=== PATIENT | male | born 1975 | race African-American/Black ===

== ENCOUNTER 2016-07-24 12:48 | Inpatient (IN) | payer OTHER ==
[2016-07-24 14:20] VITALS: BMI 21.1
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
[2016-07-24] MEDS ORDERED: P-EPHED 60MG/TRIPROLIDI 2.5MG TABLET PO PRN (15:47)
[2016-07-24] MEDS ORDERED: guaiFENesin/D-METHORPHAN HB 10 ML UNIT-DOSE CUPS PO PRN (15:47)
[2016-07-24] MEDS ORDERED: hydrOXYzine PAMOATE 50 MG CAPSULE (FP) PO PRN (15:47)
[2016-07-24] MEDS ORDERED: MENTHOL/PHENOL 1 EACH UD MM PRN (15:47)
[2016-07-24] MEDS ORDERED: MAGNESIUM CITRATE 300 ML BOTTLE PO PRN (15:47)
[2016-07-24] MEDS ORDERED: LOPERAMIDE HCL 2 MG CAPSULE PO PRN (15:47)
[2016-07-24] MEDS ORDERED: MAGNESIUM HYDROX 2400MG/30ML ORAL SUSPENSION 30 ML CUP PO PRN (15:47)
[2016-07-24] MEDS: NICOTINE 14 MG/24 HOURS TOPICAL PATCH TD SCH (20:09)
[2016-07-24] MEDS: THIAMINE HCL 100 MG TABLET (FP) PO SCH (22:34)
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
[2016-07-25] MEDS: CALCIUM 500MG/VIT-D 200 UNITS COMBO TABLET (FP) PO SCH (09:32)
[2016-07-25] MEDS: PRENATAL VITAMINS W/ FOLIC ACID TABLET (FP) PO SCH (09:32)
[2016-07-25] MEDS: HYDROCHLOROTHIAZIDE 25 MG TABLET (FP) PO SCH (09:32)
[2016-07-25] MEDS: LISINOPRIL 20 MG TABLET (FP) PO SCH (09:32)
[2016-07-25] MEDS: amLODIPine BESYLATE 5 MG TABLET (FP) PO SCH (09:32)
[2016-07-25] MEDS: NICOTINE 14 MG/24 HOURS TOPICAL PATCH TD SCH (09:33)
[2016-07-25] MEDS: NICOTINE POLACRILEX 2 MG GUM BC PRN (09:34)
--- NOTE | 2016-07-25 10:02 | EKG ---
Test Reason : Blood Pressure : / mmHG Vent. Rate : 063 BPM Atrial Rate : 063 BPM P-R Int : 000 ms QRS Dur : 082 ms QT Int : 392 ms P-R-T Axes : 000 069 057 degrees QTc Int : 401 ms NORMAL SINUS RHYTHM ANTEROSEPTAL INFARCT , AGE UNDETERMINED ABNORMAL ECG NO PREVIOUS ECGS AVAILABLE POOR DATA QUALITY, INTERPRETATION MAY BE ADVERSELY AFFECTED Confirmed by SHANNON MURRY MD ([id number]) on 07/25/2016 10:01:39 AM Referred By: Confirmed By:SHANNON MURRY MD
[2016-07-25 10:07] LABS: MCH 31.6 pg (25.7-33.7); MCHC 33.9 g/dl (32.0-35.9); MEAN CELL VOLUME 93.2 fl (80-96); MEAN PLT VOLUME 7.7 fl (7.5-11.1); PLATELET COUNT 251 K/MM3 (134-434); RDW 13.6 % (11.9-15.9); WHITE BLOOD COUNT 6.5 K/mm3 (4.0-10.0)
[2016-07-25 10:22] LABS: ALBUMIN 4.1 g/dl (3.4-5.0); BILIRUBIN,TOTAL 0.5 mg/dL (0.2-1.0); CALCIUM 9.2 mg/dL (8.5-10.1); COCKROFT - GAULT 78.2; CREATININE 1.5 mg/dL (0.7-1.3); TOT PROT 7.1 g/dl (6.4-8.2)
--- NOTE | 2016-07-25 11:37 | PN ---
[facility] Progress Note Note: seasonal allergy will give claritin 10 mgs po joseph,dry eye to give artificial tear drop 1 gtt both eye bid
[2016-07-25] MEDS: LORATADINE 10 MG TABLET PO SCH (12:04)
[2016-07-25] MEDS: ARTIFICIAL TEARS (POLYVINYL ALCOHOL 1.4%) OPTH DROPS OU SCH ×2 (12:04→21:31)
[2016-07-25] MEDS ORDERED: PT OWN MED DRAWER 7, Y5N ONE ×2 (12:06→21:32)
[2016-07-25 18:00] LABS: URINE APPEARANCE CLEAR; URINE BILIRUBIN NEGATIVE (NEGATIVE); URINE BLOOD NEGATIVE (NEGATIVE); URINE COLOR LTYELLOW; URINE GLUCOSE (UA) NEGATIVE (NEGATIVE); URINE KETONE NEGATIVE (NEGATIVE); URINE LEUK ESTERASE NEGATIVE (NEGATIVE); URINE NITRITE NEGATIVE (NEGATIVE); URINE PROTEIN NEGATIVE (NEGATIVE); URINE UROBILINOGEN NEGATIVE E.U./dl (0.2-1.0)
[2016-07-25] MEDS: THIAMINE HCL 100 MG TABLET (FP) PO SCH (21:30)
[2016-07-25] MEDS: diphenhydrAMINE HCL 50 MG CAPSULE PO PRN (21:31)
[2016-07-26] MEDS: NICOTINE 14 MG/24 HOURS TOPICAL PATCH TD SCH (09:32)
[2016-07-26] MEDS: LORATADINE 10 MG TABLET PO SCH (09:32)
[2016-07-26] MEDS: LISINOPRIL 20 MG TABLET (FP) PO SCH (09:32)
[2016-07-26] MEDS: HYDROCHLOROTHIAZIDE 25 MG TABLET (FP) PO SCH (09:32)
[2016-07-26] MEDS: CALCIUM 500MG/VIT-D 200 UNITS COMBO TABLET (FP) PO SCH (09:32)
[2016-07-26] MEDS: amLODIPine BESYLATE 5 MG TABLET (FP) PO SCH (09:32)
[2016-07-26] MEDS: PRENATAL VITAMINS W/ FOLIC ACID TABLET (FP) PO SCH (09:33)
[2016-07-26] MEDS ORDERED: PT OWN MED DRAWER 7, Y5N ONE ×2 (09:34→18:59)
[2016-07-26] MEDS: ARTIFICIAL TEARS (POLYVINYL ALCOHOL 1.4%) OPTH DROPS OU SCH ×2 (09:35→21:41)
[2016-07-26] MEDS: NICOTINE POLACRILEX 2 MG GUM BC PRN (09:35)
[2016-07-26] MEDS: MAG HYDROX/AL HYDROX/SIMETH 30 ML UNIT-DOSE CUP PO PRN (12:39)
[2016-07-26] MEDS: THIAMINE HCL 100 MG TABLET (FP) PO SCH (21:40)
[2016-07-26] MEDS: diphenhydrAMINE HCL 50 MG CAPSULE PO PRN (21:40)
[2016-07-27] MEDS ORDERED: PT OWN MED DRAWER 7, Y5N ONE ×2 (09:39→19:34)
[2016-07-27] MEDS: HYDROCHLOROTHIAZIDE 25 MG TABLET (FP) PO SCH (09:40)
[2016-07-27] MEDS: ARTIFICIAL TEARS (POLYVINYL ALCOHOL 1.4%) OPTH DROPS OU SCH ×2 (09:40→21:19)
[2016-07-27] MEDS: LORATADINE 10 MG TABLET PO SCH (09:40)
[2016-07-27] MEDS: LISINOPRIL 20 MG TABLET (FP) PO SCH (09:40)
[2016-07-27] MEDS: CALCIUM 500MG/VIT-D 200 UNITS COMBO TABLET (FP) PO SCH (09:40)
[2016-07-27] MEDS: PRENATAL VITAMINS W/ FOLIC ACID TABLET (FP) PO SCH (09:40)
[2016-07-27] MEDS: NICOTINE 14 MG/24 HOURS TOPICAL PATCH TD SCH (09:40)
[2016-07-27] MEDS: amLODIPine BESYLATE 5 MG TABLET (FP) PO SCH (09:40)
[2016-07-27] MEDS: NICOTINE POLACRILEX 2 MG GUM BC PRN (09:41)
--- NOTE | 2016-07-27 14:30 | EKG ---
Test Reason : Blood Pressure : / mmHG Vent. Rate : 075 BPM Atrial Rate : 075 BPM P-R Int : 188 ms QRS Dur : 086 ms QT Int : 374 ms P-R-T Axes : 067 071 061 degrees QTc Int : 417 ms NORMAL SINUS RHYTHM SEPTAL INFARCT (CITED ON OR BEFORE 24-JUL-2016) ABNORMAL ECG WHEN COMPARED WITH ECG OF 24-JUL-2016 20:09, QUESTIONABLE CHANGE IN INITIAL FORCES OF ANTERIOR LEADS CLINICAL CORRELATION IS RECOMMENDED Confirmed by IRA ZEPEDA MD ([id number]) on 07/27/2016 2:30:03 PM Referred By: Confirmed By:IRA ZEPEDA MD
[2016-07-27] MEDS: IBUPROFEN 400 MG TABLET (FP) PO PRN (18:47)
[2016-07-27] MEDS: diphenhydrAMINE HCL 50 MG CAPSULE PO PRN (21:19)
[2016-07-27] MEDS: THIAMINE HCL 100 MG TABLET (FP) PO SCH (21:19)
[2016-07-28] MEDS ORDERED: PT OWN MED DRAWER 7, Y5N ONE (08:29)
[2016-07-28] MEDS: ARTIFICIAL TEARS (POLYVINYL ALCOHOL 1.4%) OPTH DROPS OU SCH ×2 (09:37→21:15)
[2016-07-28] MEDS: amLODIPine BESYLATE 5 MG TABLET (FP) PO SCH (09:38)
[2016-07-28] MEDS: HYDROCHLOROTHIAZIDE 25 MG TABLET (FP) PO SCH (09:38)
[2016-07-28] MEDS: CALCIUM 500MG/VIT-D 200 UNITS COMBO TABLET (FP) PO SCH (09:38)
[2016-07-28] MEDS: LISINOPRIL 20 MG TABLET (FP) PO SCH (09:38)
[2016-07-28] MEDS: LORATADINE 10 MG TABLET PO SCH (09:38)
[2016-07-28] MEDS: NICOTINE 14 MG/24 HOURS TOPICAL PATCH TD SCH (09:38)
[2016-07-28] MEDS: PRENATAL VITAMINS W/ FOLIC ACID TABLET (FP) PO SCH (09:38)
[2016-07-28] MEDS: THIAMINE HCL 100 MG TABLET (FP) PO SCH (21:15)
[2016-07-28] MEDS: diphenhydrAMINE HCL 50 MG CAPSULE PO PRN (21:15)
[2016-07-29] MEDS: ARTIFICIAL TEARS (POLYVINYL ALCOHOL 1.4%) OPTH DROPS OU SCH ×2 (09:22→21:14)
[2016-07-29] MEDS: NICOTINE 14 MG/24 HOURS TOPICAL PATCH TD SCH (09:22)
[2016-07-29] MEDS: amLODIPine BESYLATE 5 MG TABLET (FP) PO SCH (09:23)
[2016-07-29] MEDS: LORATADINE 10 MG TABLET PO SCH (09:23)
[2016-07-29] MEDS: LISINOPRIL 20 MG TABLET (FP) PO SCH (09:23)
[2016-07-29] MEDS: HYDROCHLOROTHIAZIDE 25 MG TABLET (FP) PO SCH (09:23)
[2016-07-29] MEDS: CALCIUM 500MG/VIT-D 200 UNITS COMBO TABLET (FP) PO SCH (09:23)
[2016-07-29] MEDS: PRENATAL VITAMINS W/ FOLIC ACID TABLET (FP) PO SCH (09:23)
[2016-07-29] MEDS ORDERED: PT OWN MED DRAWER 7, Y5N ONE ×2 (14:28→21:14)
[2016-07-29] MEDS: METHYL SALICYLATE/MENTHOL OINT 30 GM TUBE TP SCH (21:13)
[2016-07-29] MEDS: diphenhydrAMINE HCL 50 MG CAPSULE PO PRN (21:13)
[2016-07-29] MEDS: THIAMINE HCL 100 MG TABLET (FP) PO SCH (21:13)
[2016-07-29] MEDS: CARBAMIDE PEROXIDE 6.5% OTIC 15 ML BOTTLE AU SCH (21:14)
[2016-07-30] MEDS: amLODIPine BESYLATE 5 MG TABLET (FP) PO SCH (09:37)
[2016-07-30] MEDS: LORATADINE 10 MG TABLET PO SCH (09:37)
[2016-07-30] MEDS: ARTIFICIAL TEARS (POLYVINYL ALCOHOL 1.4%) OPTH DROPS OU SCH ×2 (09:37→21:24)
[2016-07-30] MEDS: CALCIUM 500MG/VIT-D 200 UNITS COMBO TABLET (FP) PO SCH (09:38)
[2016-07-30] MEDS: NICOTINE 14 MG/24 HOURS TOPICAL PATCH TD SCH (09:38)
[2016-07-30] MEDS: HYDROCHLOROTHIAZIDE 25 MG TABLET (FP) PO SCH (09:38)
[2016-07-30] MEDS: LISINOPRIL 20 MG TABLET (FP) PO SCH (09:38)
[2016-07-30] MEDS ORDERED: PT OWN MED DRAWER 7, Y5N ONE ×2 (09:40→21:24)
[2016-07-30] MEDS: CARBAMIDE PEROXIDE 6.5% OTIC 15 ML BOTTLE AU SCH ×2 (09:40→21:24)
[2016-07-30] MEDS: PRENATAL VITAMINS W/ FOLIC ACID TABLET (FP) PO SCH (09:41)
[2016-07-30] MEDS: METHYL SALICYLATE/MENTHOL OINT 30 GM TUBE TP SCH ×2 (09:41→21:24)
[2016-07-30] MEDS: NICOTINE POLACRILEX 2 MG GUM BC PRN (15:27)
[2016-07-30] MEDS: COLLOIDAL OATMEAL 1 BAR EACH TP PRN (17:32)
[2016-07-30] MEDS: THIAMINE HCL 100 MG TABLET (FP) PO SCH (21:23)
[2016-07-30] MEDS: diphenhydrAMINE HCL 50 MG CAPSULE PO PRN (21:23)
[2016-07-31] MEDS ORDERED: PT OWN MED DRAWER 7, Y5N ONE ×2 (08:30→21:16)
[2016-07-31] MEDS: CALCIUM 500MG/VIT-D 200 UNITS COMBO TABLET (FP) PO SCH (09:31)
[2016-07-31] MEDS: CARBAMIDE PEROXIDE 6.5% OTIC 15 ML BOTTLE AU SCH ×2 (09:31→21:17)
[2016-07-31] MEDS: HYDROCHLOROTHIAZIDE 25 MG TABLET (FP) PO SCH (09:31)
[2016-07-31] MEDS: PRENATAL VITAMINS W/ FOLIC ACID TABLET (FP) PO SCH (09:31)
[2016-07-31] MEDS: amLODIPine BESYLATE 5 MG TABLET (FP) PO SCH (09:31)
[2016-07-31] MEDS: LISINOPRIL 20 MG TABLET (FP) PO SCH (09:31)
[2016-07-31] MEDS: LORATADINE 10 MG TABLET PO SCH (09:31)
[2016-07-31] MEDS: NICOTINE 14 MG/24 HOURS TOPICAL PATCH TD SCH (09:32)
[2016-07-31] MEDS: ARTIFICIAL TEARS (POLYVINYL ALCOHOL 1.4%) OPTH DROPS OU SCH ×2 (09:32→21:17)
[2016-07-31] MEDS: METHYL SALICYLATE/MENTHOL OINT 30 GM TUBE TP SCH ×2 (09:36→21:17)
[2016-07-31] MEDS: THIAMINE HCL 100 MG TABLET (FP) PO SCH (21:14)
[2016-07-31] MEDS: diphenhydrAMINE HCL 50 MG CAPSULE PO PRN (21:14)
[2016-08-01] MEDS: METHYL SALICYLATE/MENTHOL OINT 30 GM TUBE TP SCH ×2 (09:29→21:15)
[2016-08-01] MEDS: PRENATAL VITAMINS W/ FOLIC ACID TABLET (FP) PO SCH (09:29)
[2016-08-01] MEDS: ASPIRIN 81 MG CHEWABLE TABLETS PO SCH (09:29)
[2016-08-01] MEDS: ARTIFICIAL TEARS (POLYVINYL ALCOHOL 1.4%) OPTH DROPS OU SCH ×2 (09:29→21:57)
[2016-08-01] MEDS: CARBAMIDE PEROXIDE 6.5% OTIC 15 ML BOTTLE AU SCH ×2 (09:30→21:15)
[2016-08-01] MEDS: HYDROCHLOROTHIAZIDE 25 MG TABLET (FP) PO SCH (09:30)
[2016-08-01] MEDS: LORATADINE 10 MG TABLET PO SCH (09:30)
[2016-08-01] MEDS: amLODIPine BESYLATE 5 MG TABLET (FP) PO SCH (09:31)
[2016-08-01] MEDS: LISINOPRIL 20 MG TABLET (FP) PO SCH (09:31)
[2016-08-01] MEDS: NICOTINE 14 MG/24 HOURS TOPICAL PATCH TD SCH (09:31)
[2016-08-01] MEDS: CALCIUM 500MG/VIT-D 200 UNITS COMBO TABLET (FP) PO SCH (09:31)
[2016-08-01] MEDS: NICOTINE POLACRILEX 2 MG GUM BC PRN ×2 (09:32→13:34)
[2016-08-01] MEDS: diphenhydrAMINE HCL 50 MG CAPSULE PO PRN ×2 (21:14→22:07)
[2016-08-01] MEDS: THIAMINE HCL 100 MG TABLET (FP) PO SCH (21:14)
[2016-08-01] MEDS ORDERED: PT OWN MED DRAWER 7, Y5N ONE (22:00)
[2016-08-02] MEDS ORDERED: PT OWN MED DRAWER 7, Y5N ONE ×3 (08:19→21:27)
[2016-08-02] MEDS: ARTIFICIAL TEARS (POLYVINYL ALCOHOL 1.4%) OPTH DROPS OU SCH ×2 (09:22→22:39)
[2016-08-02] MEDS: CARBAMIDE PEROXIDE 6.5% OTIC 15 ML BOTTLE AU SCH ×2 (09:23→22:41)
[2016-08-02] MEDS: ASPIRIN 81 MG CHEWABLE TABLETS PO SCH (09:23)
[2016-08-02] MEDS: LISINOPRIL 20 MG TABLET (FP) PO SCH (09:23)
[2016-08-02] MEDS: CALCIUM 500MG/VIT-D 200 UNITS COMBO TABLET (FP) PO SCH (09:23)
[2016-08-02] MEDS: amLODIPine BESYLATE 5 MG TABLET (FP) PO SCH (09:23)
[2016-08-02] MEDS: LORATADINE 10 MG TABLET PO SCH (09:23)
[2016-08-02] MEDS: PRENATAL VITAMINS W/ FOLIC ACID TABLET (FP) PO SCH (09:23)
[2016-08-02] MEDS: HYDROCHLOROTHIAZIDE 25 MG TABLET (FP) PO SCH (09:23)
[2016-08-02] MEDS: METHYL SALICYLATE/MENTHOL OINT 30 GM TUBE TP SCH ×2 (09:23→22:39)
[2016-08-02] MEDS: NICOTINE 14 MG/24 HOURS TOPICAL PATCH TD SCH (12:27)
[2016-08-02] MEDS: ACETAMINOPHEN 325 MG TABLET (FP) PO PRN (16:54)
[2016-08-02] MEDS: COLLOIDAL OATMEAL 1 BAR EACH TP PRN (17:06)
[2016-08-02] MEDS: diphenhydrAMINE HCL 50 MG CAPSULE PO PRN (21:27)
[2016-08-02] MEDS: THIAMINE HCL 100 MG TABLET (FP) PO SCH (21:27)
[2016-08-03] MEDS ORDERED: PT OWN MED DRAWER 7, Y5N ONE ×3 (08:18→21:59)
[2016-08-03] MEDS: PRENATAL VITAMINS W/ FOLIC ACID TABLET (FP) PO SCH (09:18)
[2016-08-03] MEDS: ASPIRIN 81 MG CHEWABLE TABLETS PO SCH (09:18)
[2016-08-03] MEDS: amLODIPine BESYLATE 5 MG TABLET (FP) PO SCH (09:18)
[2016-08-03] MEDS: LISINOPRIL 20 MG TABLET (FP) PO SCH (09:18)
[2016-08-03] MEDS: LORATADINE 10 MG TABLET PO SCH (09:18)
[2016-08-03] MEDS: CALCIUM 500MG/VIT-D 200 UNITS COMBO TABLET (FP) PO SCH (09:18)
[2016-08-03] MEDS: CARBAMIDE PEROXIDE 6.5% OTIC 15 ML BOTTLE AU SCH (09:19)
[2016-08-03] MEDS: NICOTINE 14 MG/24 HOURS TOPICAL PATCH TD SCH (09:19)
[2016-08-03] MEDS: METHYL SALICYLATE/MENTHOL OINT 30 GM TUBE TP SCH ×2 (09:19→22:31)
[2016-08-03] MEDS: ARTIFICIAL TEARS (POLYVINYL ALCOHOL 1.4%) OPTH DROPS OU SCH ×2 (09:19→21:49)
[2016-08-03] MEDS: HYDROCHLOROTHIAZIDE 25 MG TABLET (FP) PO SCH (09:19)
[2016-08-03] MEDS: NICOTINE POLACRILEX 2 MG GUM BC PRN (19:00)
[2016-08-03] MEDS: diphenhydrAMINE HCL 50 MG CAPSULE PO PRN ×2 (20:49→21:48)
[2016-08-03] MEDS: THIAMINE HCL 100 MG TABLET (FP) PO SCH (21:50)
[2016-08-04] MEDS ORDERED: PT OWN MED DRAWER 7, Y5N ONE ×4 (08:28→22:01)
[2016-08-04] MEDS: HYDROCHLOROTHIAZIDE 25 MG TABLET (FP) PO SCH (09:36)
[2016-08-04] MEDS: LISINOPRIL 20 MG TABLET (FP) PO SCH (09:36)
[2016-08-04] MEDS: ASPIRIN 81 MG CHEWABLE TABLETS PO SCH (09:36)
[2016-08-04] MEDS: CALCIUM 500MG/VIT-D 200 UNITS COMBO TABLET (FP) PO SCH (09:36)
[2016-08-04] MEDS: LORATADINE 10 MG TABLET PO SCH (09:36)
[2016-08-04] MEDS: NICOTINE 14 MG/24 HOURS TOPICAL PATCH TD SCH (09:36)
[2016-08-04] MEDS: METHYL SALICYLATE/MENTHOL OINT 30 GM TUBE TP SCH ×2 (09:36→21:35)
[2016-08-04] MEDS: PRENATAL VITAMINS W/ FOLIC ACID TABLET (FP) PO SCH (09:36)
[2016-08-04] MEDS: ARTIFICIAL TEARS (POLYVINYL ALCOHOL 1.4%) OPTH DROPS OU SCH ×2 (09:37→21:35)
[2016-08-04] MEDS: amLODIPine BESYLATE 5 MG TABLET (FP) PO SCH (09:37)
[2016-08-04] MEDS: diphenhydrAMINE HCL 50 MG CAPSULE PO PRN (21:34)
[2016-08-04] MEDS: THIAMINE HCL 100 MG TABLET (FP) PO SCH (21:34)
[2016-08-04] MEDS: CLOTRIMAZOLE 1%TOPICAL SOLUTION 30 ML BOTTLE TP SCH (21:36)
[2016-08-05] MEDS ORDERED: PT OWN MED DRAWER 7, Y5N ONE ×2 (08:28→21:38)
[2016-08-05] MEDS: HYDROCHLOROTHIAZIDE 25 MG TABLET (FP) PO SCH (09:43)
[2016-08-05] MEDS: ASPIRIN 81 MG CHEWABLE TABLETS PO SCH (09:43)
[2016-08-05] MEDS: amLODIPine BESYLATE 5 MG TABLET (FP) PO SCH (09:43)
[2016-08-05] MEDS: LISINOPRIL 20 MG TABLET (FP) PO SCH (09:43)
[2016-08-05] MEDS: LORATADINE 10 MG TABLET PO SCH (09:43)
[2016-08-05] MEDS: CALCIUM 500MG/VIT-D 200 UNITS COMBO TABLET (FP) PO SCH (09:44)
[2016-08-05] MEDS: METHYL SALICYLATE/MENTHOL OINT 30 GM TUBE TP SCH ×2 (09:44→23:13)
[2016-08-05] MEDS: PRENATAL VITAMINS W/ FOLIC ACID TABLET (FP) PO SCH (09:44)
[2016-08-05] MEDS: ARTIFICIAL TEARS (POLYVINYL ALCOHOL 1.4%) OPTH DROPS OU SCH ×2 (09:44→21:38)
[2016-08-05] MEDS: CLOTRIMAZOLE 1%TOPICAL SOLUTION 30 ML BOTTLE TP SCH ×2 (09:44→21:38)
[2016-08-05] MEDS: NICOTINE 14 MG/24 HOURS TOPICAL PATCH TD SCH (09:46)
[2016-08-05] MEDS: diphenhydrAMINE HCL 50 MG CAPSULE PO PRN (21:37)
[2016-08-05] MEDS: THIAMINE HCL 100 MG TABLET (FP) PO SCH (21:38)
[2016-08-06] MEDS ORDERED: PT OWN MED DRAWER 7, Y5N ONE ×4 (08:38→21:42)
[2016-08-06] MEDS: METHYL SALICYLATE/MENTHOL OINT 30 GM TUBE TP SCH ×2 (09:28→21:08)
[2016-08-06] MEDS: ARTIFICIAL TEARS (POLYVINYL ALCOHOL 1.4%) OPTH DROPS OU SCH ×2 (09:28→21:07)
[2016-08-06] MEDS: PRENATAL VITAMINS W/ FOLIC ACID TABLET (FP) PO SCH (09:29)
[2016-08-06] MEDS: ASPIRIN 81 MG CHEWABLE TABLETS PO SCH (09:29)
[2016-08-06] MEDS: CLOTRIMAZOLE 1%TOPICAL SOLUTION 30 ML BOTTLE TP SCH ×2 (09:29→21:07)
[2016-08-06] MEDS: LISINOPRIL 20 MG TABLET (FP) PO SCH (09:29)
[2016-08-06] MEDS: HYDROCHLOROTHIAZIDE 25 MG TABLET (FP) PO SCH (09:29)
[2016-08-06] MEDS: LORATADINE 10 MG TABLET PO SCH (09:29)
[2016-08-06] MEDS: CALCIUM 500MG/VIT-D 200 UNITS COMBO TABLET (FP) PO SCH (09:29)
[2016-08-06] MEDS: amLODIPine BESYLATE 5 MG TABLET (FP) PO SCH (09:29)
[2016-08-06] MEDS: NICOTINE 14 MG/24 HOURS TOPICAL PATCH TD SCH (09:30)
[2016-08-06] MEDS: IBUPROFEN 400 MG TABLET (FP) PO PRN (15:37)
[2016-08-06] MEDS: THIAMINE HCL 100 MG TABLET (FP) PO SCH (21:08)
[2016-08-06] MEDS: diphenhydrAMINE HCL 50 MG CAPSULE PO PRN (23:01)
[2016-08-07] MEDS: CALCIUM 500MG/VIT-D 200 UNITS COMBO TABLET (FP) PO SCH (09:43)
[2016-08-07] MEDS: HYDROCHLOROTHIAZIDE 25 MG TABLET (FP) PO SCH (09:43)
[2016-08-07] MEDS: LISINOPRIL 20 MG TABLET (FP) PO SCH (09:43)
[2016-08-07] MEDS: LORATADINE 10 MG TABLET PO SCH (09:43)
[2016-08-07] MEDS: PRENATAL VITAMINS W/ FOLIC ACID TABLET (FP) PO SCH (09:43)
[2016-08-07] MEDS: amLODIPine BESYLATE 5 MG TABLET (FP) PO SCH (09:43)
[2016-08-07] MEDS: ASPIRIN 81 MG CHEWABLE TABLETS PO SCH (09:44)
[2016-08-07] MEDS: ARTIFICIAL TEARS (POLYVINYL ALCOHOL 1.4%) OPTH DROPS OU SCH ×2 (09:44→21:31)
[2016-08-07] MEDS: METHYL SALICYLATE/MENTHOL OINT 30 GM TUBE TP SCH ×2 (09:44→21:31)
[2016-08-07] MEDS: CLOTRIMAZOLE 1%TOPICAL SOLUTION 30 ML BOTTLE TP SCH ×2 (09:44→21:31)
[2016-08-07] MEDS ORDERED: PT OWN MED DRAWER 7, Y5N ONE ×3 (09:44→21:31)
[2016-08-07] MEDS: NICOTINE 14 MG/24 HOURS TOPICAL PATCH TD SCH (09:45)
[2016-08-07] MEDS: NICOTINE POLACRILEX 2 MG GUM BC PRN (09:46)
[2016-08-07] MEDS: MAG HYDROX/AL HYDROX/SIMETH 30 ML UNIT-DOSE CUP PO PRN (20:28)
[2016-08-07] MEDS: THIAMINE HCL 100 MG TABLET (FP) PO SCH (21:30)
[2016-08-07] MEDS: diphenhydrAMINE HCL 50 MG CAPSULE PO PRN (21:30)
[2016-08-08] MEDS: HYDROCHLOROTHIAZIDE 25 MG TABLET (FP) PO SCH (09:32)
[2016-08-08] MEDS: LORATADINE 10 MG TABLET PO SCH (09:32)
[2016-08-08] MEDS: PRENATAL VITAMINS W/ FOLIC ACID TABLET (FP) PO SCH (09:32)
[2016-08-08] MEDS: LISINOPRIL 20 MG TABLET (FP) PO SCH (09:32)
[2016-08-08] MEDS: ASPIRIN 81 MG CHEWABLE TABLETS PO SCH (09:32)
[2016-08-08] MEDS: CALCIUM 500MG/VIT-D 200 UNITS COMBO TABLET (FP) PO SCH (09:32)
[2016-08-08] MEDS: ARTIFICIAL TEARS (POLYVINYL ALCOHOL 1.4%) OPTH DROPS OU SCH ×2 (09:36→21:40)
[2016-08-08] MEDS: NICOTINE 14 MG/24 HOURS TOPICAL PATCH TD SCH (09:36)
[2016-08-08] MEDS: amLODIPine BESYLATE 5 MG TABLET (FP) PO SCH (10:30)
[2016-08-08] MEDS: METHYL SALICYLATE/MENTHOL OINT 30 GM TUBE TP SCH ×2 (11:29→21:40)
[2016-08-08] MEDS: CLOTRIMAZOLE 1%TOPICAL SOLUTION 30 ML BOTTLE TP SCH ×2 (11:30→21:41)
[2016-08-08] MEDS ORDERED: PT OWN MED DRAWER 7, Y5N ONE (19:49)
[2016-08-08] MEDS: diphenhydrAMINE HCL 50 MG CAPSULE PO PRN (21:40)
[2016-08-08] MEDS: THIAMINE HCL 100 MG TABLET (FP) PO SCH (21:40)
[2016-08-09] MEDS ORDERED: PT OWN MED DRAWER 7, Y5N ONE ×3 (08:18→21:50)
[2016-08-09] MEDS: LISINOPRIL 20 MG TABLET (FP) PO SCH (09:36)
[2016-08-09] MEDS: LORATADINE 10 MG TABLET PO SCH (09:36)
[2016-08-09] MEDS: ASPIRIN 81 MG CHEWABLE TABLETS PO SCH (09:36)
[2016-08-09] MEDS: PRENATAL VITAMINS W/ FOLIC ACID TABLET (FP) PO SCH (09:36)
[2016-08-09] MEDS: HYDROCHLOROTHIAZIDE 25 MG TABLET (FP) PO SCH (09:36)
[2016-08-09] MEDS: amLODIPine BESYLATE 5 MG TABLET (FP) PO SCH (09:36)
[2016-08-09] MEDS: METHYL SALICYLATE/MENTHOL OINT 30 GM TUBE TP SCH ×2 (09:36→21:42)
[2016-08-09] MEDS: ARTIFICIAL TEARS (POLYVINYL ALCOHOL 1.4%) OPTH DROPS OU SCH ×2 (09:36→21:41)
[2016-08-09] MEDS: CALCIUM 500MG/VIT-D 200 UNITS COMBO TABLET (FP) PO SCH (09:36)
[2016-08-09] MEDS: CLOTRIMAZOLE 1%TOPICAL SOLUTION 30 ML BOTTLE TP SCH ×2 (09:38→21:41)
[2016-08-09] MEDS: NICOTINE 14 MG/24 HOURS TOPICAL PATCH TD SCH (09:38)
[2016-08-09] MEDS: NICOTINE POLACRILEX 2 MG GUM BC PRN (10:58)
[2016-08-09] MEDS: COLLOIDAL OATMEAL 1 BAR EACH TP PRN (13:04)
[2016-08-09] MEDS: diphenhydrAMINE HCL 50 MG CAPSULE PO PRN ×2 (21:41→23:09)
[2016-08-09] MEDS: THIAMINE HCL 100 MG TABLET (FP) PO SCH (21:41)
[2016-08-10] MEDS ORDERED: PT OWN MED DRAWER 7, Y5N ONE ×3 (08:22→21:46)
[2016-08-10] MEDS: CALCIUM 500MG/VIT-D 200 UNITS COMBO TABLET (FP) PO SCH (09:30)
[2016-08-10] MEDS: LISINOPRIL 20 MG TABLET (FP) PO SCH (09:30)
[2016-08-10] MEDS: PRENATAL VITAMINS W/ FOLIC ACID TABLET (FP) PO SCH (09:30)
[2016-08-10] MEDS: METHYL SALICYLATE/MENTHOL OINT 30 GM TUBE TP SCH ×2 (09:30→21:39)
[2016-08-10] MEDS: LORATADINE 10 MG TABLET PO SCH (09:30)
[2016-08-10] MEDS: amLODIPine BESYLATE 5 MG TABLET (FP) PO SCH (09:30)
[2016-08-10] MEDS: ASPIRIN 81 MG CHEWABLE TABLETS PO SCH (09:30)
[2016-08-10] MEDS: HYDROCHLOROTHIAZIDE 25 MG TABLET (FP) PO SCH (09:30)
[2016-08-10] MEDS: ARTIFICIAL TEARS (POLYVINYL ALCOHOL 1.4%) OPTH DROPS OU SCH ×2 (09:31→21:38)
[2016-08-10] MEDS: CLOTRIMAZOLE 1%TOPICAL SOLUTION 30 ML BOTTLE TP SCH ×2 (09:33→21:38)
[2016-08-10] MEDS: NICOTINE 14 MG/24 HOURS TOPICAL PATCH TD SCH (09:34)
[2016-08-10] MEDS: NICOTINE POLACRILEX 2 MG GUM BC PRN (15:04)
[2016-08-10] MEDS: THIAMINE HCL 100 MG TABLET (FP) PO SCH (21:38)
[2016-08-10] MEDS: diphenhydrAMINE HCL 50 MG CAPSULE PO PRN (21:38)
[2016-08-11] MEDS ORDERED: PT OWN MED DRAWER 7, Y5N ONE ×3 (08:37→22:24)
[2016-08-11] MEDS: amLODIPine BESYLATE 5 MG TABLET (FP) PO SCH (09:26)
[2016-08-11] MEDS: METHYL SALICYLATE/MENTHOL OINT 30 GM TUBE TP SCH ×2 (09:26→21:51)
[2016-08-11] MEDS: PRENATAL VITAMINS W/ FOLIC ACID TABLET (FP) PO SCH (09:26)
[2016-08-11] MEDS: LISINOPRIL 20 MG TABLET (FP) PO SCH (09:26)
[2016-08-11] MEDS: ARTIFICIAL TEARS (POLYVINYL ALCOHOL 1.4%) OPTH DROPS OU SCH ×2 (09:26→21:50)
[2016-08-11] MEDS: HYDROCHLOROTHIAZIDE 25 MG TABLET (FP) PO SCH (09:26)
[2016-08-11] MEDS: NICOTINE 14 MG/24 HOURS TOPICAL PATCH TD SCH (09:26)
[2016-08-11] MEDS: ASPIRIN 81 MG CHEWABLE TABLETS PO SCH (09:26)
[2016-08-11] MEDS: CALCIUM 500MG/VIT-D 200 UNITS COMBO TABLET (FP) PO SCH (09:26)
[2016-08-11] MEDS: LORATADINE 10 MG TABLET PO SCH (09:27)
[2016-08-11] MEDS: CLOTRIMAZOLE 1%TOPICAL SOLUTION 30 ML BOTTLE TP SCH ×2 (09:27→21:50)
[2016-08-11] MEDS: NICOTINE POLACRILEX 2 MG GUM BC PRN (09:29)
[2016-08-11] MEDS: diphenhydrAMINE HCL 50 MG CAPSULE PO PRN (21:50)
[2016-08-11] MEDS: THIAMINE HCL 100 MG TABLET (FP) PO SCH (21:50)
[2016-08-12] MEDS ORDERED: PT OWN MED DRAWER 7, Y5N ONE ×2 (08:18→21:30)
[2016-08-12] MEDS: HYDROCHLOROTHIAZIDE 25 MG TABLET (FP) PO SCH (09:29)
[2016-08-12] MEDS: ARTIFICIAL TEARS (POLYVINYL ALCOHOL 1.4%) OPTH DROPS OU SCH ×2 (09:29→21:30)
[2016-08-12] MEDS: CLOTRIMAZOLE 1%TOPICAL SOLUTION 30 ML BOTTLE TP SCH ×2 (09:29→21:30)
[2016-08-12] MEDS: LORATADINE 10 MG TABLET PO SCH (09:29)
[2016-08-12] MEDS: LISINOPRIL 20 MG TABLET (FP) PO SCH (09:29)
[2016-08-12] MEDS: PRENATAL VITAMINS W/ FOLIC ACID TABLET (FP) PO SCH (09:29)
[2016-08-12] MEDS: CALCIUM 500MG/VIT-D 200 UNITS COMBO TABLET (FP) PO SCH (09:30)
[2016-08-12] MEDS: METHYL SALICYLATE/MENTHOL OINT 30 GM TUBE TP SCH ×2 (09:30→21:30)
[2016-08-12] MEDS: amLODIPine BESYLATE 5 MG TABLET (FP) PO SCH (09:30)
[2016-08-12] MEDS: ASPIRIN 81 MG CHEWABLE TABLETS PO SCH (09:32)
[2016-08-12] MEDS: NICOTINE 14 MG/24 HOURS TOPICAL PATCH TD SCH (09:33)
[2016-08-12] MEDS: THIAMINE HCL 100 MG TABLET (FP) PO SCH (21:30)
[2016-08-12] MEDS: diphenhydrAMINE HCL 50 MG CAPSULE PO PRN (21:30)
[2016-08-13] MEDS: LORATADINE 10 MG TABLET PO SCH (09:28)
[2016-08-13] MEDS: HYDROCHLOROTHIAZIDE 25 MG TABLET (FP) PO SCH (09:28)
[2016-08-13] MEDS: CALCIUM 500MG/VIT-D 200 UNITS COMBO TABLET (FP) PO SCH (09:28)
[2016-08-13] MEDS: amLODIPine BESYLATE 5 MG TABLET (FP) PO SCH (09:28)
[2016-08-13] MEDS: LISINOPRIL 20 MG TABLET (FP) PO SCH (09:28)
[2016-08-13] MEDS: ASPIRIN 81 MG CHEWABLE TABLETS PO SCH (09:28)
[2016-08-13] MEDS: PRENATAL VITAMINS W/ FOLIC ACID TABLET (FP) PO SCH (09:28)
[2016-08-13] MEDS: NICOTINE 14 MG/24 HOURS TOPICAL PATCH TD SCH (09:28)
[2016-08-13] MEDS: METHYL SALICYLATE/MENTHOL OINT 30 GM TUBE TP SCH ×2 (09:29→22:44)
[2016-08-13] MEDS: NICOTINE POLACRILEX 2 MG GUM BC PRN (09:29)
[2016-08-13] MEDS: ARTIFICIAL TEARS (POLYVINYL ALCOHOL 1.4%) OPTH DROPS OU SCH ×2 (09:29→22:44)
[2016-08-13] MEDS: CLOTRIMAZOLE 1%TOPICAL SOLUTION 30 ML BOTTLE TP SCH ×2 (09:29→22:44)
[2016-08-13] MEDS: COLLOIDAL OATMEAL 1 BAR EACH TP PRN (20:55)
[2016-08-13] MEDS: THIAMINE HCL 100 MG TABLET (FP) PO SCH (21:52)
[2016-08-13] MEDS: diphenhydrAMINE HCL 50 MG CAPSULE PO PRN (21:52)
[2016-08-14] MEDS: HYDROCHLOROTHIAZIDE 25 MG TABLET (FP) PO SCH (09:33)
[2016-08-14] MEDS: CALCIUM 500MG/VIT-D 200 UNITS COMBO TABLET (FP) PO SCH (09:33)
[2016-08-14] MEDS: LORATADINE 10 MG TABLET PO SCH (09:33)
[2016-08-14] MEDS: PRENATAL VITAMINS W/ FOLIC ACID TABLET (FP) PO SCH (09:33)
[2016-08-14] MEDS: LISINOPRIL 20 MG TABLET (FP) PO SCH (09:33)
[2016-08-14] MEDS: ASPIRIN 81 MG CHEWABLE TABLETS PO SCH (09:33)
[2016-08-14] MEDS: ARTIFICIAL TEARS (POLYVINYL ALCOHOL 1.4%) OPTH DROPS OU SCH ×2 (09:33→21:28)
[2016-08-14] MEDS: amLODIPine BESYLATE 5 MG TABLET (FP) PO SCH (09:33)
[2016-08-14] MEDS: NICOTINE 14 MG/24 HOURS TOPICAL PATCH TD SCH (09:34)
[2016-08-14] MEDS: CLOTRIMAZOLE 1%TOPICAL SOLUTION 30 ML BOTTLE TP SCH ×2 (09:34→21:32)
[2016-08-14] MEDS: METHYL SALICYLATE/MENTHOL OINT 30 GM TUBE TP SCH ×2 (09:34→21:32)
[2016-08-14] MEDS: THIAMINE HCL 100 MG TABLET (FP) PO SCH (21:28)
[2016-08-14] MEDS: diphenhydrAMINE HCL 50 MG CAPSULE PO PRN (21:28)
[2016-08-14] MEDS ORDERED: PT OWN MED DRAWER 7, Y5N ONE (21:29)
[2016-08-15] MEDS ORDERED: PT OWN MED DRAWER 7, Y5N ONE ×2 (08:31→14:16)
[2016-08-15] MEDS: ARTIFICIAL TEARS (POLYVINYL ALCOHOL 1.4%) OPTH DROPS OU SCH ×2 (09:44→21:52)
[2016-08-15] MEDS: ASPIRIN 81 MG CHEWABLE TABLETS PO SCH (09:44)
[2016-08-15] MEDS: CALCIUM 500MG/VIT-D 200 UNITS COMBO TABLET (FP) PO SCH (09:45)
[2016-08-15] MEDS: amLODIPine BESYLATE 5 MG TABLET (FP) PO SCH (09:45)
[2016-08-15] MEDS: PRENATAL VITAMINS W/ FOLIC ACID TABLET (FP) PO SCH (09:45)
[2016-08-15] MEDS: HYDROCHLOROTHIAZIDE 25 MG TABLET (FP) PO SCH (09:45)
[2016-08-15] MEDS: LISINOPRIL 20 MG TABLET (FP) PO SCH (09:45)
[2016-08-15] MEDS: LORATADINE 10 MG TABLET PO SCH (09:45)
[2016-08-15] MEDS: NICOTINE 14 MG/24 HOURS TOPICAL PATCH TD SCH (09:47)
[2016-08-15] MEDS: CLOTRIMAZOLE 1%TOPICAL SOLUTION 30 ML BOTTLE TP SCH ×2 (09:47→21:39)
[2016-08-15] MEDS: METHYL SALICYLATE/MENTHOL OINT 30 GM TUBE TP SCH ×2 (09:47→21:38)
[2016-08-15] MEDS: MAG HYDROX/AL HYDROX/SIMETH 30 ML UNIT-DOSE CUP PO PRN (15:58)
[2016-08-15] MEDS: diphenhydrAMINE HCL 50 MG CAPSULE PO PRN (21:38)
[2016-08-15] MEDS: THIAMINE HCL 100 MG TABLET (FP) PO SCH (21:38)
[2016-08-16] MEDS: ASPIRIN 81 MG CHEWABLE TABLETS PO SCH (09:43)
[2016-08-16] MEDS: CALCIUM 500MG/VIT-D 200 UNITS COMBO TABLET (FP) PO SCH (09:43)
[2016-08-16] MEDS: ARTIFICIAL TEARS (POLYVINYL ALCOHOL 1.4%) OPTH DROPS OU SCH ×2 (09:43→21:23)
[2016-08-16] MEDS: LORATADINE 10 MG TABLET PO SCH (09:44)
[2016-08-16] MEDS: METHYL SALICYLATE/MENTHOL OINT 30 GM TUBE TP SCH ×2 (09:44→22:12)
[2016-08-16] MEDS: CLOTRIMAZOLE 1%TOPICAL SOLUTION 30 ML BOTTLE TP SCH ×2 (09:44→22:12)
[2016-08-16] MEDS: NICOTINE 14 MG/24 HOURS TOPICAL PATCH TD SCH (09:44)
[2016-08-16] MEDS: PRENATAL VITAMINS W/ FOLIC ACID TABLET (FP) PO SCH (09:44)
[2016-08-16] MEDS: amLODIPine BESYLATE 5 MG TABLET (FP) PO SCH (09:44)
[2016-08-16] MEDS: HYDROCHLOROTHIAZIDE 25 MG TABLET (FP) PO SCH (09:44)
[2016-08-16] MEDS: NICOTINE POLACRILEX 2 MG GUM BC PRN (09:44)
[2016-08-16] MEDS: LISINOPRIL 20 MG TABLET (FP) PO SCH (09:44)
[2016-08-16] MEDS ORDERED: PT OWN MED DRAWER 7, Y5N ONE (21:23)
[2016-08-16] MEDS: diphenhydrAMINE HCL 50 MG CAPSULE PO PRN (21:23)
[2016-08-16] MEDS: THIAMINE HCL 100 MG TABLET (FP) PO SCH (21:23)
[2016-08-17] MEDS ORDERED: PT OWN MED DRAWER 7, Y5N ONE ×3 (08:21→21:39)
[2016-08-17] MEDS: ASPIRIN 81 MG CHEWABLE TABLETS PO SCH (09:37)
[2016-08-17] MEDS: LISINOPRIL 20 MG TABLET (FP) PO SCH (09:37)
[2016-08-17] MEDS: CALCIUM 500MG/VIT-D 200 UNITS COMBO TABLET (FP) PO SCH (09:37)
[2016-08-17] MEDS: LORATADINE 10 MG TABLET PO SCH (09:37)
[2016-08-17] MEDS: HYDROCHLOROTHIAZIDE 25 MG TABLET (FP) PO SCH (09:37)
[2016-08-17] MEDS: PRENATAL VITAMINS W/ FOLIC ACID TABLET (FP) PO SCH (09:37)
[2016-08-17] MEDS: METHYL SALICYLATE/MENTHOL OINT 30 GM TUBE TP SCH ×2 (09:38→22:29)
[2016-08-17] MEDS: CLOTRIMAZOLE 1%TOPICAL SOLUTION 30 ML BOTTLE TP SCH ×2 (09:38→22:29)
[2016-08-17] MEDS: ARTIFICIAL TEARS (POLYVINYL ALCOHOL 1.4%) OPTH DROPS OU SCH ×2 (09:38→21:31)
[2016-08-17] MEDS: amLODIPine BESYLATE 5 MG TABLET (FP) PO SCH (09:38)
[2016-08-17] MEDS: NICOTINE 14 MG/24 HOURS TOPICAL PATCH TD SCH (09:38)
[2016-08-17] MEDS: ACETAMINOPHEN 325 MG TABLET (FP) PO PRN (13:55)
[2016-08-17] MEDS: THIAMINE HCL 100 MG TABLET (FP) PO SCH (21:30)
[2016-08-17] MEDS: diphenhydrAMINE HCL 50 MG CAPSULE PO PRN ×2 (21:30→22:39)
[2016-08-18] MEDS ORDERED: PT OWN MED DRAWER 7, Y5N ONE ×2 (08:35→22:18)
[2016-08-18] MEDS: METHYL SALICYLATE/MENTHOL OINT 30 GM TUBE TP SCH ×2 (09:46→21:32)
[2016-08-18] MEDS: LORATADINE 10 MG TABLET PO SCH (09:47)
[2016-08-18] MEDS: HYDROCHLOROTHIAZIDE 25 MG TABLET (FP) PO SCH (09:47)
[2016-08-18] MEDS: ARTIFICIAL TEARS (POLYVINYL ALCOHOL 1.4%) OPTH DROPS OU SCH ×2 (09:47→21:32)
[2016-08-18] MEDS: CALCIUM 500MG/VIT-D 200 UNITS COMBO TABLET (FP) PO SCH (09:47)
[2016-08-18] MEDS: amLODIPine BESYLATE 5 MG TABLET (FP) PO SCH (09:47)
[2016-08-18] MEDS: LISINOPRIL 20 MG TABLET (FP) PO SCH (09:47)
[2016-08-18] MEDS: PRENATAL VITAMINS W/ FOLIC ACID TABLET (FP) PO SCH (09:47)
[2016-08-18] MEDS: CLOTRIMAZOLE 1%TOPICAL SOLUTION 30 ML BOTTLE TP SCH ×2 (09:48→21:32)
[2016-08-18] MEDS: ASPIRIN 81 MG CHEWABLE TABLETS PO SCH (09:48)
[2016-08-18] MEDS: NICOTINE 14 MG/24 HOURS TOPICAL PATCH TD SCH (09:49)
[2016-08-18] MEDS: THIAMINE HCL 100 MG TABLET (FP) PO SCH (21:32)
[2016-08-18] MEDS: diphenhydrAMINE HCL 50 MG CAPSULE PO PRN (21:32)
[2016-08-19] MEDS ORDERED: PT OWN MED DRAWER 7, Y5N ONE ×2 (08:24→21:54)
[2016-08-19] MEDS: LORATADINE 10 MG TABLET PO SCH (09:42)
[2016-08-19] MEDS: LISINOPRIL 20 MG TABLET (FP) PO SCH (09:42)
[2016-08-19] MEDS: ASPIRIN 81 MG CHEWABLE TABLETS PO SCH (09:42)
[2016-08-19] MEDS: HYDROCHLOROTHIAZIDE 25 MG TABLET (FP) PO SCH (09:42)
[2016-08-19] MEDS: ARTIFICIAL TEARS (POLYVINYL ALCOHOL 1.4%) OPTH DROPS OU SCH ×2 (09:42→21:54)
[2016-08-19] MEDS: METHYL SALICYLATE/MENTHOL OINT 30 GM TUBE TP SCH ×2 (09:42→23:32)
[2016-08-19] MEDS: amLODIPine BESYLATE 5 MG TABLET (FP) PO SCH (09:42)
[2016-08-19] MEDS: NICOTINE 14 MG/24 HOURS TOPICAL PATCH TD SCH (09:43)
[2016-08-19] MEDS: CLOTRIMAZOLE 1%TOPICAL SOLUTION 30 ML BOTTLE TP SCH ×2 (09:43→23:32)
[2016-08-19] MEDS: PRENATAL VITAMINS W/ FOLIC ACID TABLET (FP) PO SCH (09:43)
[2016-08-19] MEDS: CALCIUM 500MG/VIT-D 200 UNITS COMBO TABLET (FP) PO SCH (09:44)
--- NOTE | 2016-08-19 10:29 | PN ---
Psychiatric Progress Note Vital Signs: Vital Signs Period Temp Pulse Resp BP Sys/Velez Pulse Ox Last 24 Hr 97.8 F 68 18-18 124/76 Date of Session: 08/19/16 Chief Complaint:: Discharge Note HPI: Patient addressing Opoid and Cocaine Dependence comorbid with Nicotine Dependence ROS: HTN Current Medications: Active Medications Generic Name Dose Route Start Last Admin Trade Name Freq PRN Reason Stop Dose Admin Acetaminophen 650 mg 07/24/16 15:47 08/17/16 13:55 Tylenol - PO 650 mg Q4H PRN Administration PAIN Al Hydroxide/Mg Hydroxide 30 ml 07/24/16 15:47 08/15/16 15:58 Mylanta Oral Suspension - PO 30 ml Q6H PRN Administration DYSPEPSIA Amlodipine Besylate 5 mg 07/25/16 10:00 08/19/16 09:42 Norvasc - PO 5 mg DAILY MATHIEU Administration Artificial Tears 1 drop 07/25/16 11:45 08/19/16 09:42 Artificial Tears OU Not Given BID MATHIEU Aspirin 81 mg 08/01/16 10:00 08/19/16 09:42 Asa - PO 81 mg DAILY MATHIEU Administration Calcium Carbonate/Cholecalciferol 1 tab 07/25/16 10:00 08/19/16 09:44 Os-Abhishek 500+D - PO 1 tab DAILY MATHIEU Administration Clotrimazole 1 applic 08/04/16 22:00 08/19/16 09:43 Lotrimin 1% Solution - TP Not Given BID MATHIEU Colloidal Oatmeal 1 applic 07/29/16 13:14 08/13/16 20:55 Aveeno Soap - TP 1 applic DAILY PRN Administration HYGEINE Diphenhydramine HCl 50 mg 07/24/16 15:47 08/18/16 21:32 Benadryl - PO 50 mg HSMR1 PRN Administration INSOMNIA Eucalyptus/Menthol/Phenol/Sorbitol 1 each 07/24/16 15:47 Cepastat Lozenge - MM Q4H PRN SORE THROAT Guaifenesin 10 ml 07/24/16 15:47 Robitussin Dm - PO Q6H PRN COUGH Hydrochlorothiazide 25 mg 07/25/16 10:00 08/19/16 09:42 Hctz - PO 25 mg DAILY MATHIEU Administration Hydroxyzine Pamoate 50 mg 07/24/16 15:47 Vistaril - PO Q4H PRN AGITATION Ibuprofen 400 mg 07/24/16 15:47 08/06/16 15:37 Motrin - PO 400 mg Q6H PRN Administration SEVERE PAIN Lisinopril 20 mg 07/25/16 10:00 08/19/16 09:42 Prinivil PO 20 mg DAILY MATHIEU Administration Loperamide HCl 4 mg 07/24/16 15:47 Imodium - PO Q6H PRN DIARRHEA Loratadine 10 mg 07/25/16 11:45 08/19/16 09:42 Claritin - PO Not Given DAILY MATHIEU Magnesium Citrate 300 ml 07/24/16 15:47 Citroma - PO Q48H PRN CONSTIPATION Magnesium Hydroxide 30 ml 07/24/16 15:47 Milk Of Magnesia - PO DAILY PRN CONSTIPATION Methyl Salicylate 1 applic 07/29/16 22:00 08/19/16 09:42 [place]-Leos - TP Not Given BID MATHIEU Nicotine 14 mg 07/24/16 16:30 08/19/16 09:43 Nicoderm Patch - TD 14 mg DAILY MATHIEU Administration Nicotine Polacrilex 2 mg 07/24/16 15:47 08/16/16 09:44 Nicorette Gum - BC 2 mg Q2H PRN Administration NICOTINE REPLACEMENT RX Multivit/Folic Acid/Iron 1 tab 07/25/16 10:00 08/19/16 09:43 Vitamins ([facility]) - PO 1 tab DAILY MATHIEU Administration Thiamine HCl 100 mg 07/24/16 22:00 08/18/16 21:32 Vitamin B1 - PO 100 mg HS MATHIEU Administration Current Side Effect: No Provider note:: Patient will complete this program on 08/20/16. He has met his treatment goals but has refused referral to outpatient treatment in order to continue to address his issues. Told scientific technical writer that from his participation in this program, he has learned to identify his triggers in term of People Places and Things. He is stable for discharge on 08/20/16 Total face to face time:: 35 Mental Status Exam - Mental Status Exam Alert and Oriented to: Time, Place, Person Mood: Hopeful, Euthymic Affect: Appropriate Patient Behavior: Cooperative Speech Pattern: Clear Voice Loudness: Normal Thought Process: Intact Thought Disorder: Not Present Hallucinations: Denies Suicidal Ideation: Denies Homicidal Ideation: Denies Insight/Judgement: Fair Appetite: Good Muscle strength/Tone: Normal Gait/Station: Normal Psychiatric Treatment Plan - Problem List (1) Opioid dependence Current Visit: Yes (2) Cocaine dependence Current Visit: Yes (3) Nicotine dependence Current Visit: Yes (4) Essential hypertension Current Visit: Yes Initial treatment plan: Patient will be discharged tomorrow but has refused to accept any referral for outpatient treatment
[2016-08-19] MEDS: COLLOIDAL OATMEAL 1 BAR EACH TP PRN (20:12)
[2016-08-19] MEDS: THIAMINE HCL 100 MG TABLET (FP) PO SCH (21:53)
[2016-08-20 06:42] VITALS: TEMP 97.9
[2016-08-20] MEDS: ASPIRIN 81 MG CHEWABLE TABLETS PO SCH (09:07)
[2016-08-20] MEDS: LISINOPRIL 20 MG TABLET (FP) PO SCH (09:07)
[2016-08-20] MEDS: HYDROCHLOROTHIAZIDE 25 MG TABLET (FP) PO SCH (09:07)
[2016-08-20] MEDS: amLODIPine BESYLATE 5 MG TABLET (FP) PO SCH (09:07)
[2016-08-20] MEDS: CALCIUM 500MG/VIT-D 200 UNITS COMBO TABLET (FP) PO SCH (09:07)
[2016-08-20] MEDS: PRENATAL VITAMINS W/ FOLIC ACID TABLET (FP) PO SCH (09:07)
[2016-08-20] MEDS: ARTIFICIAL TEARS (POLYVINYL ALCOHOL 1.4%) OPTH DROPS OU SCH (09:08)
[2016-08-20] MEDS: LORATADINE 10 MG TABLET PO SCH (09:08)
[2016-08-20] MEDS: NICOTINE 14 MG/24 HOURS TOPICAL PATCH TD SCH (09:08)
[2016-08-20] MEDS: CLOTRIMAZOLE 1%TOPICAL SOLUTION 30 ML BOTTLE TP SCH (09:08)
[2016-08-20] MEDS: METHYL SALICYLATE/MENTHOL OINT 30 GM TUBE TP SCH (09:08)
[2016-08-20 09:52] VITALS: BP 145/86; PULSE 76
== END 2016-08-20 09:35 | disposition home or self-care (01) | DRG 772 ==
LOC: YASAS 12:48 → Y3W 15:30
PROVIDERS: ADMIT Psychiatry & Neurology Psychiatry; ATTEND Psychiatry & Neurology Psychiatry
PROC: HZ42ZZZ Group Counseling for Substance Abuse Treatment, Cognitive-Behavioral (ICD-10-PCS; principal; 2016-07-24)
DX: F11.20 Opioid dependence, uncomplicated (principal); F14.20 Cocaine dependence, uncomplicated; F17.210 Nicotine dependence, cigarettes, uncomplicated; I10 Essential (primary) hypertension; J30.2 Other seasonal allergic rhinitis; H04.123 Dry eye syndrome of bilateral lacrimal glands
CPT/HCPCS: 36415; 80053; 81003; 85027; 86593; 93005; 93010